=== PATIENT | male | born 1955 | race Caucasian/White ===

== ENCOUNTER 2020-10-12 06:54 | Outpatient (NON) | payer OTHER, SELFPAY ==
[2020-10-12 22:15] LABS: SARS-CoV-2 RNA PCR Negative
== END 2020-10-12 06:55 ==
PROVIDERS: PCP Family Medicine; Visit Provider Physician Assistant Medical
DX: Z20.822 Contact with and (suspected) exposure to COVID-19 (principal)
CPT/HCPCS: C9803; U0003; U0005

== ENCOUNTER → 2021-02-01 10:30 | Outpatient (CLI) | payer SELFPAY ==
[2021-02-02 16:10] LABS: SARS-CoV-2 RNA PCR Negative
== END ==
PROVIDERS: PCP Family Medicine; Visit Provider Physician Assistant Medical
DX: R68.89 Other general symptoms and signs (principal); Z20.822 Contact with and (suspected) exposure to COVID-19
CPT/HCPCS: C9803; U0003; U0005

== ENCOUNTER 2022-06-07 01:09 | Day surgery (SDC) | payer MEDICARE, SELFPAY ==
[2022-05-24 14:16] VITALS: BMI 30.9
[2022-06-07 07:38] VITALS: BP 128/76; PULSE 85; RESP 18; TEMP 36.4; O2SAT 99
[2022-06-07] MEDS: LACTATED RINGERS 1,000 ML 150 ML IV CONT (07:46)
--- NOTE | 2022-06-07 08:00 | PM.IMHP ---
H&P: HPI History of Present Illness Date/Time: 06/07/22 08:00 Chief Complaint: Neoplasia screening. Narrative: This is a 67-year-old white male patient presents for colonoscopy. Patient has a prior history of adenomatous colon polyp. Family history is significant his father had colon cancer. Patient presents today for screening colonoscopy. Patient's current weight appetite bowel movements are normal. He denies abdominal pain. He has had no bleeding. Family history noncontributory. Patient presents today for screening exam. [facility] Past Medical History Medical History Benign prostatic hyperplasia with urinary frequency Cervical radiculopathy due to trauma Cervical vertebral fusion (~2015) History of herniated intervertebral disc (~2015) Mixed hyperlipidemia Obesity (BMI 30.0-34.9) Polyp of colon Rotator cuff arthropathy of right shoulder Squamous cell skin cancer Surgical History Surgical History History of repair of ACL (~1989) Family History Family History Mother , age 74 Asthma Family history of malignant neoplasm Leukemia Father , age 67 Carcinoma of colon Grandparent , MGM age 84, MGF age 74, PGM age 94, PGF age 84 No problems noted. Sibling Carcinoma of colon Social History Social History Smoking status: Former smoker Second hand tobacco smoke exposure: No Smoking end date: 09/30/11 Alcohol intake: current Drinks per week: 1 Alcohol use details: Fridays Substance use: never Substance use type: does not use Living arrangements: with family Spiritual care concerns: No Meds Home Medications and Allergies Home Medications Medication Instructions Recorded Confirmed Type triamcinolone acetonide 0.1 % 1 applic topical TID #80 grams 12/25/21 06/07/22 Rx topical cream tamsulosin 0.4 mg capsule 0.4 mg PO DAILY #90 caps 03/12/22 06/07/22 Rx Allergies Allergy/AdvReac Type Severity Reaction Status Date / Time cat dander Allergy Unknown allergic Verified 06/07/22 07:37 Vital Signs Vital Signs - 24 hr 06/07/22 07:38 Temperature 97.5 F L Pulse Rate 85 Respiratory Rate 18 Blood Pressure 128/76 Pulse Oximetry 99 Oxygen Delivery Room Air Exam Narrative: Physical exam reveals patient to be alert. Vital signs stable. HEENT exam is unremarkable. Patient is anicteric. Lungs are clear to auscultation and percussion. Heart is without murmur or extra sounds. Abdominal exam bowel sounds are present soft nontender with no hepatosplenomegaly. Digital external rectal exam is normal. Assessment and Plan Assessment and plan (1) History of colon polyps: Code(s): Z86.010 - Personal history of colonic polyps Status: Acute Assessment and Plan: Patient has a prior history of colon polyps his father had colon cancer. Recommend follow-up colonoscopy at 5 year intervals. Further recommendations will be given after endoscopy. (2) Family history of colon cancer in father: Code(s): Z80.0 - Family history of malignant neoplasm of digestive organs Status: Acute
--- NOTE | 2022-06-07 08:02 | P.PNAN_ITS ---
Anes - Initial Pre Proc Eval Procedure: Operation Date: 06/07/22 08:30 Proposed Procedures p Screening Colonoscopy - Peyman Gaitan MD Date/Time: 06/07/22 08:02 Surgeon: Peyman Gaitan MD Pre Op Diagnosis: hx of colon polyps Patient Data Age: 67 Gender: M Height: 1.85 m Weight: 103.8 kg Last Vital Signs Temp 97.5 F L 06/07/22 07:38 Pulse 85 06/07/22 07:38 Resp 18 06/07/22 07:38 BP 128/76 06/07/22 07:38 Pulse Ox 99 06/07/22 07:38 O2 Del Method Room Air 06/07/22 07:38 Allergies Allergy/AdvReac Type Severity Reaction Status Date / Time cat dander Allergy Unknown allergic Verified 06/07/22 07:37 Home Medications Medication Instructions Recorded Confirmed Type triamcinolone acetonide 0.1 % 1 applic topical TID #80 grams 12/25/21 06/07/22 Rx topical cream tamsulosin 0.4 mg capsule 0.4 mg PO DAILY #90 caps 03/12/22 06/07/22 Rx Patient hx anesthesia problems: none Family hx anesthesia problems: none Results Review: All pre-operative results and documents have been reviewed as part of the pre- operative evaluation. [facility] Past Medical History Medical History Benign prostatic hyperplasia with urinary frequency Cervical radiculopathy due to trauma Cervical vertebral fusion (~2015) History of herniated intervertebral disc (~2015) Mixed hyperlipidemia Obesity (BMI 30.0-34.9) Polyp of colon Rotator cuff arthropathy of right shoulder Squamous cell skin cancer Surgical History Surgical History History of repair of ACL (~1989) Family History Family History Mother , age 74 Asthma Family history of malignant neoplasm Leukemia Father , age 67 Carcinoma of colon Grandparent , MGM age 84, MGF age 74, PGM age 94, PGF age 84 No problems noted. Sibling Carcinoma of colon Social History Social History Smoking status: Former smoker Second hand tobacco smoke exposure: No Smoking end date: 09/30/11 Alcohol intake: current Drinks per week: 1 Alcohol use details: Fridays Substance use: never Substance use type: does not use Living arrangements: with family Spiritual care concerns: No Anes - Eval Final PreProcedure Day of Procedure 06/07/22 08:02 Patient weight: obese Heart: regular rate and rhythm Lungs: clear to auscultation Airway: Mallampati scale class II Neurological: alert and oriented Last oral intake: >/= 8 hours ASA classification: II Emergent: no Anesthetic plan: proceed Anesthesia type and monitoring: general GIVS and standard monitoring Results Review: All pre-operative results and documents have been reviewed as part of the pre- operative evaluation. Informed Consent: The patient's anesthetic plan and its attendant risks and benefits were discussed with the patient/family/POA. Questions were solicited and answers provided to the satisfaction of the patient/family/POA.
[2022-06-07 08:25] VITALS: BP 106/56; PULSE 72; RESP 22; O2SAT 99
[2022-06-07 08:35] VITALS: BP 103/68; PULSE 75; RESP 26; O2SAT 98
[2022-06-07 08:45] VITALS: BP 134/80; PULSE 72; RESP 17; O2SAT 97
== END 2022-06-07 08:59 | disposition home or self-care (01) ==
PROVIDERS: PCP Family Medicine; Visit Provider Internal Medicine Gastroenterology
PROC: 0DJD8ZZ Inspection of Lower Intestinal Tract, Via Natural or Artificial Opening Endoscopic (ICD-10-PCS; CPT 45378; principal; 2022-06-07 08:30)
DX: Z12.11 Encounter for screening for malignant neoplasm of colon (principal); K57.30 Diverticulosis of large intestine without perforation or abscess without bleeding; K64.8 Other hemorrhoids; Z86.010 Personal history of colon polyps; Z80.0 Family history of malignant neoplasm of digestive organs; N40.1 Benign prostatic hyperplasia with lower urinary tract symptoms; R35.0 Frequency of micturition; E78.2 Mixed hyperlipidemia; E66.9 Obesity, unspecified; Z87.891 Personal history of nicotine dependence; Z98.1 Arthrodesis status
CPT/HCPCS: G0105; J2704; J7120

== ENCOUNTER 2023-05-09 11:39 | Outpatient (CLI) | payer OTHER, SELFPAY ==
[2023-05-09 13:16] LABS: Kit Draw Collected
== END 2023-05-09 11:40 | disposition home or self-care (01) ==
LOC: ANHGOSHLAB 11:41
PROVIDERS: PCP Family Medicine; Visit Provider Family Medicine
DX: E78.5 Hyperlipidemia, unspecified (principal); Z12.5 Encounter for screening for malignant neoplasm of prostate
CPT/HCPCS: 36415

== ENCOUNTER → 2023-05-13 10:05 | Outpatient (CLI) | payer OTHER, SELFPAY ==
--- NOTE | ~2023-05-13 | MR_ITS ---
EXAMINATION: MR shoulder RT wo con DATE: 05/13/2023 11:08 INDICATION: Right shoulder pain TECHNIQUE: Magnetic resonance imaging (MRI) of the right shoulder was performed without intravenous c ontrast. Sequences included axial PD-weighted FS FSE, coronal oblique PD-weighted FS FSE, coronal obl ique T2-weighted FS FSE, sagittal PD-weighted FS FSE, and sagittal T1-weighted SE. COMPARISON: Right shoulder radiographs dated 06/10/2020 FINDINGS: Coracoacromial arch: The acromion undersurface is flat in morphology (type I). The coracoacromial ligament is normal. Mode rate acromioclavicular osteoarthritis. Rotator cuff: Mild to moderate supraspinatus tendinopathy without discrete tear. The infraspinatus, teres minor and subscapularis tendons are normal. Normal rotator cuff muscle bulk and signal. Biceps tendon, glenoid labrum and glenohumeral cartilage: Long head of the biceps tendon is normal. Normal anterosuperior sublabral foramen. There is a tear ex tending inferiorly from the foramen along the anterior to anteroinferior labrum. Partial-thickness ca rtilage loss involving greater than 50% the cartilage thickness but with smooth chondral surface at t he anterosuperior aspect of the glenoid. Additional deep chondral ulceration with chondral surface re gularity along the superomedial aspect of the humeral head. Fluid: Physiologic amount of fluid in the glenohumeral joint and biceps tendon sheath. No loose osteochondr al bodies. No abnormal increased fluid signal in the subacromial/subdeltoid bursa to suggest bursitis . Bones: Normal marrow signal with no fracture or pathologic marrow replacing process. IMPRESSION: 1. Mild right glenohumeral osteoarthritis with tear of the anterior to anteroinferior glenoid labrum. 2. Mild to moderate supraspinatus tendinopathy without tear. 3. Moderate acromioclavicular osteoarthritis. Reviewed, dictated and finalized at location A. IMPRESSION: 1. Mild right glenohumeral osteoarthritis with tear of the anterior to anteroin ferior glenoid labrum. 2. Mild to moderate supraspinatus tendinopathy without tear. 3. Moderate acromioclavicular osteoarthritis.
--- NOTE | ~2023-05-13 | CT_ITS ---
EXAMINATION: CT lung screening DATE: 05/13/2023 11:13 INDICATION: Z87.891 - Personal history of nicotine dependence TECHNIQUE: Computed tomography (CT) of the chest was performed without intravenous contrast. Addition al 3D reconstructions utilizing coronal maximum intensity projection (MIP) were performed. Automated exposure control and iterative reconstruction technique were employed. The dose-length product was 19 8.31 mGy-cm. COMPARISON: None FINDINGS: Calcified left upper lobe nodule, calcified left hilar lymph nodes and multiple small splenic calcifi cations, all consistent with old granulomatous disease. There are few scattered bilateral very small pulmonary nodules the largest measuring 4 mm in the left lower lobe. No pneumonia, pulmonary edema or pleural effusion. Heart size is normal. Minimal scattered atherosclerotic coronary artery calcific l ocation. No pericardial effusion. Thoracic aorta is normal in caliber. No pathologically enlarged tho racic lymphadenopathy. Small sclerotic lesion at T3 most likely representing a small bone island. IMPRESSION: 1. Lung-RADS category 2: Benign appearance or behavior. Continue annual screening with noncontrast lo w-dose chest CT in 12 months. Reviewed, dictated and finalized at location A. IMPRESSION: 1. Lung-RADS category 2: Benign appearance or behavior. Continue annual screeni ng with noncontrast low-dose chest CT in 12 months.
== END ==
PROVIDERS: PCP Family Medicine; Visit Provider Family Medicine
DX: Z12.2 Encounter for screening for malignant neoplasm of respiratory organs (principal); Z87.891 Personal history of nicotine dependence; M19.011 Primary osteoarthritis, right shoulder
CPT/HCPCS: 71271; 73221

== ENCOUNTER 2025-06-16 13:44 | Outpatient (CLI) | payer OTHER, SELFPAY ==
--- OUTSIDE RECORDS SUMMARY | 2003-12-06 08:00 | XMS_ITS | Continuity of Care Document ---
Author Organization [facility] Address [address] [place] [address] Phone Care Team Providers Care [employer] Repairer Name Role Phone Geovanny Gomes DO Unavailable Unavailable Advance Directives Directive Yes / No Effective Date File Name No Information Encounters Encounter Description Practice Location Reason(s) For Visit Diagnoses Date Provider Providers Copied on Encounter [facility], [address], [place], [place], [id number], tel:[phone] [facility] No Information Eliseo Lund. [address] [place], [address], [place]. tel: [phone] Referring Provider: Christiano Rossi MD, [address] [place] [address], [address]. tel:[phone] Family History Family Member Type Diagnosis Age At Onset No Information Payers Payer name Insurance type Covered democrat ID Authoriza tion(s) No Information Social History Type Description Quantity Date Captured Comments Sex Male Smoking Status No Information Chief Complaint And Reason For Visit No Information Reason For Referral Reason For Referral No Information History Of Present Illness Encounter Date Complaint History Of Prese nt Illness No Information Functional Status Date Functional Assessmen t No Information Instructions Date Instruction Additional Infor mation No Information Assessments Type Assessment Date No Information Patient Care Teams Name Effective Dates (start - stop) Status Members No Information
--- NOTE | ~2025-06-16 | CT_ITS ---
EXAMINATION: CT abdomen pelvis wo con DATE: 06/16/2025 14:05 INDICATION: Benign prostatic hypertrophy with urinary urge incontinence. TECHNIQUE: Computed tomography (CT) of the abdomen and pelvis was performed without intravenous contrast. Automated exposure control and iterative reconstruction technique were employed. The dose-length product was 1102.41 mGy-cm. COMPARISON: Chest CT 05/13/2023 FINDINGS: The visualized portions of lung bases demonstrate minimal atelectasis. No pleural effusion. The heart size is normal. No pericardial effusion. There is diffuse hepatic steatosis. The gallbladder is normal in size. Calcifications in the spleen are consistent with old granulomatous disease. There is chronic atrophy of the tail of the pancreas. The adrenal glands and right kidney are normal. There is a 9 mm cyst in left kidney. There is no urolithiasis. The prostate is moderately enlarged. There is diverticulosis of the colon without evidence of diverticulitis. The appendix is normal. There are no dilated loops of bowel. There are no pathologically enlarged lymph nodes. There is no free intraperitoneal fluid. There is severe lower lumbar spondylosis. IMPRESSION: 1. Moderately enlarged prostate. 2. Diffuse hepatic steatosis. Reviewed, dictated and finalized at location E.
--- OUTSIDE RECORDS SUMMARY | 2025-06-16 14:23 | XMS_ITS | Clinical Summary ---
Author Organization [facility] [employer] Address [address] [place] [address] Care Team Providers Care Primary Class Teacher Name Role Phone Unavailable Primary Care Provider Unavailabl e Source Comments [facility] [employer],non-owned Affiliates and Associated Physician Practices is amultiple site organization consisting of ambulatory clinics and hospital sitesin [place], [place], [place] and [place]. This disclosure is being madepursuant to the Care Everywhere program and may not contain all information available regarding this patient. Last updated 18.[facility] [employer] Allergies No known active allergies Medications * Be aware that medications may not be up to date on this document. Alwaysverify current medications with the patient. 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 Gender Identity Not on file Sexual Orientation Not on file Last Filed Vital Signs Vital Sign Reading Time Taken Comments Blood Pressure 128/86 11/26/2011 10:24 AM MOTOR REBUILDER Pulse 84 11/26/2011 10:24 AM MOTOR REBUILDER Temperature - - Respiratory Rate - - Oxygen Saturation - - Inhaled Oxygen Concentration - - Weight 104 kg (229 lb 3.2 oz) 11/26/2011 10:24 A M MOTOR REBUILDER Height 188 cm (6' 2) 11/26/2011 10:24 AM MOTOR REBUILDER Body Mass Index 29.43 11/26/2011 10:24 AM MOTOR REBUILDER Plan of Treatment Health Maintenance Due Date Last Done Comments COLOGUARD (AGES 45-75) - COL ON CA SCREENING 1957 COLON MONITORING 1957 COLONOSCOPY - COLON CA SCREENING 1957 CT COLONOGRAPHY - COLON CA SCREENING 1957 Colorectal Cancer Screening 1957 FIT - COLON CA SCREENING 1957 FLEX SIG - COLON CA SCREENING 1957 LIPID TESTING 1957 HEPATITIS C SCREENING 02/23/1975 DTAP/TDAP/TD VACCINES (1 - Tdap) 02/28/1976 PNEUMOCOCCAL VACCINE 50+ (1 of 1 - PCV) 2007 ZOSTER VACCINE (1 of 2) 2007 AAA SCREENING 2022 DEPRESSION SCREENING 09/30/2024 COVID-19 VACCINE (1 - 2023-2 5 season) 2025 INFLUENZA VACCINE (#1) 2025 Respiratory Syncytial Virus (RSV) Vaccine Pt: or over 60 yrs (1 - 1-dose 75+ series) 02/28/2032 HEPATITIS B VACCINE Aged Out No longe r eligible based on patient's age to complete this topic HIB VACCINE Aged Out No longer eligi ble based on patient's age to complete this topic HPV VACCINE Aged Out No longer eligi ble based on patient's age to complete this topic MENINGOCOCCAL (Group B) VACC INE SHARED DECISION-MAKING Aged Out No longer eligibl e based on patient's age to complete this topic MENINGOCOCCAL GROUPS A/C/Y/W VACCINE Aged Out No longer eligible b ased on patient's age to complete this topic
--- OUTSIDE RECORDS SUMMARY | 2025-06-16 14:23 | XMS_ITS | Clinical Summary ---
Author Organization [facility] Address [address] [place] [address] Care Team Providers Care Meatman Name Role Phone Christiano Rossi MD Primary Care Provider [phone] Allergies No known active allergies Medications gabapentin (NEURONTIN) 300 mg capsule take one tablet at bedtime for 5 days, then increase to 2 tablets at bedtime 09/06/2016 Active tamsulosin (FLOMAX) 0.4 mg extended release capsule Take 0.4 mg by mouth daily 08/21/2021 Active cholecalciferol (Vitamin D3) 2000 unit capsule Active baclofen (LIORESAL) 10 mg tablet 1 tablet three times a day as needed for musle spasms 09/06/2016 Active Active Problems Problem Noted Date Diagnosed Date History of arthrodesis 12/04/2016 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 Fracture of skull 08/14/2016 Subdural hematoma 08/10/2016 Spinal stenosis of cervical region 07/27/2016 Immunizations Immunization Administration Dates Next Due Influenza, Trivalent, Preservative Free, Intramu scular 07/31/2016 Surgical History Surgery Date Site/Laterality Comments DE REPAIR PRIMARY TORN LIGM&/CAPSULE KNEE CRUCIAT Primary Repair Of Knee Ligament Cruciate Anterior - (Added by TW Conv) Family History Medical History Relation Name Comments Colon cancer Father Colon cancer - (Added by TW Conv) Leukemia Mother Family history of leukemia - (Added by TW Conv) Relation Name Status Comments Father Mother Social History Tobacco Use Types Packs/Day Years Used Date Smoking Tobacco: Former Sex and Gender Information Value Date Recorded Sex Assigned at Not on file Legal Sex Male 9:28 PM [employer]ADER Gender Identity Not on file Sexual Orientation Not on file Obstetrics History Last Filed Vital Signs Vital Sign Reading Time Taken Comments Blood Pressure 113/69 08/21/2016 7:44 AM [employer] GRADER Pulse 87 08/21/2016 7:44 AM [employer] GRADER Temperature - - Respiratory Rate - - Oxygen Saturation 98% 08/21/2016 7:44 AM [employer] GRADER Inhaled Oxygen Concentration - - Weight 96.6 kg (212 lb 15.8 oz) 08/20/2016 3:07 PM [employer] GRADER Height 188 cm (6' 2) 08/20/2016 3:07 PM [employer] GRADER Body Mass Index 27.35 08/20/2016 3:07 PM [employer] GRADER Plan of Treatment Not on file Care Teams Meatman Relationship Specialty Start Date End Date Christiano Rossi MD PCP - General 12/05/16
== END 2025-06-16 13:45 | disposition home or self-care (01) ==
LOC: ANHIMG 13:50
PROVIDERS: PCP Family Medicine; Visit Provider Urology
DX: N40.0 Benign prostatic hyperplasia without lower urinary tract symptoms (principal); K76.0 Fatty (change of) liver, not elsewhere classified
CPT/HCPCS: 74176